=== PATIENT | male | born 1975 | race African-American/Black ===

== ENCOUNTER 2017-01-07 11:09 | Day surgery (SDC) | payer OTHER ==
--- NOTE | ~2017-01-07 | EGD ---
EGD REPORT [facility] [address] [address] NAME: DAPHNE MG : [birth year] STATUS : REG [facility]#: [id number] AGE: 41 ADM/REG DATE : 01/07/17 MR#: [id number] REPORT SERV DATE: 01/07/17 DICTATED BY: MAUREEN BARNES DATE: 01/07/17 REPORT STATUS : Draft TRANSCRIBED BY: [employer] DATE: 01/07/17 [facility] Patient Name: Daphne Mg Date of : 1975 Attending MD: MAUREEN BARNES, Procedure Date No Time: 01/07/2017 Procedure: Colonoscopy Indications: Hematochezia Medicines: Monitored Anesthesia Care Complications: No immediate complications. Estimated blood loss: None. Procedure: Pre-Anesthesia Assessment: - ASA Grade Assessment: II - A patient with mild systemic disease. After I obtained informed consent, the scope was passed under direct vision. Throughout the procedure, the patient's blood pressure, pulse, and oxygen saturations were monitored continuously. The CF [id number] was introduced through the anus and advanced to the cecum, identified by appendiceal orifice and ileocecal valve. The colonoscopy was performed without difficulty. The patient tolerated the procedure well. The quality of the bowel preparation was adequate. The ileocecal valve, appendiceal orifice and rectum were photographed. Findings: The perianal and digital rectal examinations were normal. A few small-mouthed diverticula were found in the sigmoid colon. Internal hemorrhoids were found during retroflexion and were Grade I (internal hemorrhoids that do not prolapse). The exam was otherwise without abnormality on direct and retroflexion views. Impression: - Diverticulosis in the sigmoid colon. - Internal hemorrhoids. - The examination was otherwise normal on direct and retroflexion views. Recommendation: - Patient has a contact number available for emergencies. The signs and symptoms of potential delayed complications were discussed with the patient. Return to normal activities tomorrow. Written discharge instructions were provided to the patient. - Return to previous diet. - Continue present medications. - Repeat colonoscopy at age 51 for screening purposes. EGD REPORT [facility] [email or web address]. [address] NAME: DAPHNE MG : [birth year] STATUS : REG [facility]#: [id number] AGE: 41 ADM/REG DATE : 01/07/17 MR#: [id number] REPORT SERV DATE: 01/07/17 DICTATED BY: MAUREEN BARNES DATE: 01/07/17 REPORT STATUS : Draft TRANSCRIBED BY: [email or web address] DATE: 01/07/17 Procedure Code(s): --- Professional --- 51113, Colonoscopy, flexible, proximal to splenic flexure; diagnostic, with or without collection of specimen(s) by brushing or washing, with or without colon decompression (separate procedure) Diagnosis Code(s): --- Professional --- K64.0, First degree hemorrhoids K57.30, Diverticulosis of large intestine without perforation or abscess without bleeding K92.1, Melena CPT copyright 2013 [employer]. All rights reserved. The codes documented in this report are preliminary and upon patient registration supervisor review may be revised to meet current compliance requirements. MAUREEN BARNES, 01/07/2017 1:02 PM Number of Addenda: 0 Note Initiated On: 01/07/2017 12:28 PM Scope Withdrawal Time 0 hours 10 minutes [address] [place] [address]
[~2017-01-07 11:09] MED LIST: *DENIES
== END 2017-01-07 23:59 | disposition home or self-care (01) ==
LOC: DMU 11:09
PROVIDERS: Internal Medicine Gastroenterology
PROC: 0DJD8ZZ Inspection of Lower Intestinal Tract, Via Natural or Artificial Opening Endoscopic (ICD-10-PCS; principal; 2017-01-07 13:00)
DX: K64.0 First degree hemorrhoids (principal); K57.30 Diverticulosis of large intestine without perforation or abscess without bleeding; K92.1 Melena; E66.9 Obesity, unspecified; J45.909 Unspecified asthma, uncomplicated; Z88.6 Allergy status to analgesic agent